=== PATIENT | male | born 1970 | race Asian ===

== ENCOUNTER 2022-03-13 11:34 | Emergency (ER) | payer OTHER ==
[~2022-03-13] VITALS: Ht 175.3 cm; Wt 82.0 kg
[2022-03-13] MEDS ORDERED: METO25TA6 PO (12:00)
[2022-03-13] MEDS ORDERED: AMLO2.5T45 PO (12:00)
[2022-03-13] MEDS ORDERED: ASPI-1497 PO (12:00)
[2022-03-13] MEDS ORDERED: ROSU5TAB PO (12:00)
[2022-03-13] MEDS ORDERED: [UNRECOGNIZED DRUG - OTHER] (12:00)
[2022-03-13] MEDS ORDERED: CLON0.122 PO (12:00)
[2022-03-13 12:26] LABS: BASOPHILS % 0.3 % (0.0-2.0); HEMATOCRIT. 45.4 % (42.0-52.0); HEMOGLOBIN. 15.2 g/dL (14.0-18.0); MEAN CORPUSCULAR HEMOGLOBIN 26.2 pg (28.0-32.0); MEAN CORPUSCULAR VOLUME 78.1 fL (80.0-94.0); MEAN PLATELET VOLUME 8.3 fl (7.4-10.4); MONOCYTES % 6.1 % (2.0-8.0); NEUTROPHILS % 81.6 % (40.0-76.0); PLATELET 228 x1000/uL (130-400); RED BLOOD CELL COUNT 5.82 mill/uL (4.7-6.1); RED CELL DISTRIBUTION WIDTH 14.3 % (11.6-14.6)
[2022-03-13 12:32] LABS: CHLORIDE 105 mEq/L (98-107)
[2022-03-13] MEDS ORDERED: SODIUM CHLORIDE 0.9% 1,000 ML IV ONE (14:00)
[2022-03-13 15:20] VITALS: BP 116/90
== END 2022-03-13 15:32 | disposition left against medical advice (07) ==
LOC: ER 11:34 → CANBEDREQ 03-15 11:39
DX: I25.10 Atherosclerotic heart disease of native coronary artery without angina pectoris (principal); R42 Dizziness and giddiness; R00.2 Palpitations; E86.0 Dehydration; I10 Essential (primary) hypertension; E78.00 Pure hypercholesterolemia, unspecified; Z98.61 Coronary angioplasty status
CPT/HCPCS: 36415; 71045; 80053; 82962; 83690; 83880; 84484; 85025; 85379; 93005; 93970; 96360; 99291; J7030